=== PATIENT | female | born 1990 | race Caucasian/White ===

== ENCOUNTER 2016-12-28 12:09 | Emergency (ER) | payer SELFPAY ==
[~2016-12-28] VITALS: Ht 160 cm; Wt 86.2 kg
[2016-12-28 12:43] LABS: BILIRUBIN,URINE NEGATIVE (NEG); GLUCOSE,URINE NEGATIVE (NEG); NITRITE,URINE NEGATIVE (NEG); PH,URINE 6.5; PROTEIN,URINE NEGATIVE (NEG-TRACE); UROBILINOGEN,URINE 0.2 mg/dL (0.2 mg/dL)
[2016-12-28] MEDS ORDERED: IV NORMAL SALINE 1000ML BAG 1,000 ML IV ONE (12:45)
[2016-12-28 12:48] LABS: BARBITURATES NEG (NEG); BENZODIAZEPINES NEG (NEG); CANNABINOIDS POS (NEG); COCAINE NEG (NEG); METHADONE NEG (NEG); OPIATES NEG (NEG); PHENCYCLIDINE NEG (NEG)
[2016-12-28 12:50] LABS: BACTERIA,URINE MOD /HPF (0-FEW); ETHANOL, URINE NEG (NEG); SQUAMOUS EPITHELIAL CELL,UR MOD /LPF; WBC,URINE 20-40 /HPF (0-4)
--- NOTE | 2016-12-28 12:55 | ED.ADGEN ---
Past Medical History Past Medical History: Seizure, Other Additional Past Medical Histor: PCOS Past Surgical History: No Surgical History Alcohol Use: Rarely Drug Use: Marijuana Adult General Chief Complaint Chief Complaint: SYNCOPE HPI HPI Patient is a 26 year old and, with a remote history of seizure, for which she does not take medications, PCOS, for which she begun fertility treatments approximately 1 month ago at , who presents the emergency department with a complaint of "feeling weird", and an episode of syncope that occurred last night. Patient states that she first began feeling strange on Tuesday, states that she had been in a garage the propane heater, and she started feeling nauseous and lightheaded. She did feel better after she went inside and laid down away from the propane. Patient states that yesterday she was taking a shower, she bent over to shave her legs, began feeling lightheaded, and sat down abruptly on her bottom. Did not strike her head or belly. He has had some nausea and a few episodes of vomiting over the past several days. No blood or bile. States that she has had some abdominal cramping, and a small amount of discharge, but believes this may be due to the medication she is taking for fertility. States that she was not out for very long. She was seated in her tub when her boyfriend came in, denies any other episodes of syncope. Denies any similar symptoms previously. No family history of sudden cardiac or cardiac abnormalities. Last period was 11/27. He sprinting some urinary frequency , no dysuria, no hematuria. Patient states that she's had some discharge but it is consistent with the medication she's been taking for fertility. No shortness of breath, chest pain, no weakness, numbness, tingling, headache, vision changes. No upper or lower respiratory complaints. No fevers or chills. Patient denies any alcohol or cigarettes, states she did smoke marijuana on Tuesday. Heart rate 72 beats minute, oxygen saturation 100%, respiratory rate is 18 and unlabored, blood pressure 129/82. Review of Systems Review of Systems Constitutional: Denies fever or chills. [] Eyes: Denies change in visual acuity. [] HENT: Denies nasal congestion or sore throat. [] Respiratory: Denies cough or shortness of breath. [] Cardiovascular: Denies chest pain or edema. [] GI: Denies abdominal pain, nausea, vomiting, bloody stools or diarrhea. [] : Denies dysuria. [] Musculoskeletal: Denies back pain or joint pain. [] Integument: Denies rash. [] Neurologic: Denies headache, focal weakness or sensory changes. [] Endocrine: Denies polyuria or polydipsia. [] Lymphatic: Denies swollen glands. [] Psychiatric: Denies depression or anxiety. [] Current Medications Current Medications Current Medications Medications (Trade) Dose Ordered Sig/Bereket Start Time Stop Time Status Last Admin Dose Admin Metronidazole (Flagyl) 500 mg 1X ONCE 12/28/16 14:15 12/28/16 14:16 DC 12/28/16 14:43 500 MG Nitrofurantoin Macrocrystals (Macrobid) 100 mg 1X ONCE 12/28/16 14:15 12/28/16 14:16 DC 12/28/16 14:43 100 MG Sodium Chloride (Iv Sodium Chloride 0.9% 1000ml Bag) 1,000 ml @ 1,000 mls/hr 1X ONCE 12/28/16 12:45 12/28/16 13:44 DC 12/28/16 12:49 1,000 MLS/HR Allergies Allergies Allergies Coded Allergies Type Severity Reaction Last Updated Verified amoxicillin Allergy Mild rash 12/28/16 Yes Physical Exam Physical Exam Constitutional: Well developed, well nourished, no acute distress, non-toxic appearance. [] HENT: Normocephalic, atraumatic, bilateral external ears normal, oropharynx moist, no oral exudates, nose normal. [] Eyes: PERRLA, EOMI, conjunctiva normal, no discharge. [] Neck: Normal range of motion, no tenderness, supple, no stridor. [] Cardiovascular:Heart rate regular rhythm, no murmur, S1, S2, no rubs or gallops. [] Lungs & Thorax: Bilateral breath sounds clear to auscultation, no wheezing, rhonchi, rales. No chest tenderness or crepitus. [] Abdomen: Bowel sounds normal, soft, no tenderness, no rebound, rigidity, no guarding, no masses, no pulsatile masses. [] Skin: Warm, dry, no erythema, no rash. [] Back: No tenderness, no CVA tenderness. [] Extremities: No tenderness, no cyanosis, no clubbing, ROM intact, no edema. [ Negative Homans sign.] Neurologic: Alert and oriented X 3, normal motor function, normal sensory function, no focal deficits noted. [] Psychologic: Affect normal, judgement normal, mood normal. [] Pelvic examination performed. Patient complaining of abdominal cramping, however no tenderness or CMT noted on external examination, os is closed, small amount of whitish discharge noted in vault, visualize cervix is normal. No adnexal tenderness or masses identified. Specimens taken without issue. Current Patient Data Vital Signs Vital Signs Date Time Temp Pulse Resp B/P Pulse Ox O2 Delivery O2 Flow Rate FiO2 12/28/16 14:44 71 18 146/80 98 Room Air 12/28/16 12:16 98 98.0 Lab Values Laboratory Tests Test 12/28/16 11:35 12/28/16 12:31 12/28/16 12:41 12/28/16 12:45 POC Urine HCG, Qualitative Hcg positive (Negative) Urine Collection Type Unknown Urine Color Yellow Urine Clarity Clear Urine pH 6.5 Urine Specific [place] 1.015 Urine Protein Negativemg/dL (NEG-TRACE) Urine Glucose (UA) Negativemg/dL (NEG) Urine Ketones (Stick) Negativemg/dL (NEG) Urine Blood Moderate (NEG) Urine Nitrite Negative (NEG) Urine Bilirubin Negative (NEG) Urine Urobilinogen Dipstick 0.2mg/dL (0.2 mg/dL) Urine Leukocyte Esterase Large (NEG) Urine RBC 6-10/HPF (0-2) Urine WBC 20-40/HPF (0-4) Urine Squamous Epithelial Cells Mod/LPF Urine Bacteria Mod/HPF (0-FEW) Urine Opiates Screen Neg (NEG) Urine Methadone Screen Neg (NEG) Urine Barbiturates Neg (NEG) Urine Phencyclidine Screen Neg (NEG) Urine Amphetamine/Methamphetamine Neg (NEG) Urine Benzodiazepines Screen Neg (NEG) Urine Cocaine Screen Neg (NEG) Urine Cannabinoids Screen Pos (NEG) Urine Ethyl Alcohol Neg (NEG) Influenza Type A Antigen Negative (NEGATIVE) Influenza Type B Antigen Negative (NEGATIVE) White Blood Count 9.4x10^3/uL (4.0-11.0) Red Blood Count 4.72x10^6/uL (3.50-5.40) Hemoglobin 13.7g/dL (12.0-15.5) Hematocrit 41.5% (36.0-47.0) Mean Corpuscular Volume 88fL (79-100) Mean Corpuscular Hemoglobin 29pg (25-35) Mean Corpuscular Hemoglobin Concent 33g/dL (31-37) Red Cell Distribution Width 13.0% (11.5-14.5) Platelet Count 203x10^3/uL (140-400) Neutrophils (%) (Auto) 66% (31-73) Lymphocytes (%) (Auto) 21% (24-48) L Monocytes (%) (Auto) 5% (0-9) Eosinophils (%) (Auto) 7% (0-3) H Basophils (%) (Auto) 1% (0-3) Neutrophils # (Auto) 6.2x10^3uL (1.8-7.7) Lymphocytes # (Auto) 2.0x10^3/uL (1.0-4.8) Monocytes # (Auto) 0.5x10^3/uL (0.0-1.1) Eosinophils # (Auto) 0.6x10^3/uL (0.0-0.7) Basophils # (Auto) 0.0x10^3/uL (0.0-0.2) Maternal Serum HCG Beta Subunit 193mIU/mL (0-6) H Sodium Level 141mmol/L (136-145) Potassium Level 3.7mmol/L (3.5-5.1) Chloride Level 104mmol/L (98-107) Carbon Dioxide Level 24mmol/L (21-32) Anion Gap 13 (6-14) Blood Urea Nitrogen 10mg/dL (7-20) Creatinine 0.8mg/dL (0.6-1.0) Estimated GFR (Cockcroft-Gault) 86.7 Glucose Level 86mg/dL (70-99) Calcium Level 9.5mg/dL (8.5-10.1) Laboratory Tests 12/28/16 12:45 Laboratory Tests 12/28/16 12:45 Microbiology 12/28/16 Wet Prep - Final, Complete EKG EKG EC: Sinus rhythm, heart rate 73 beats minute, upright axis, QTC of 411, FL of 138, QRS of 86, no ST elevations or depressions, does not meet STEMI criteria. As interpreted by me. [] Radiology/Procedures Radiology/Procedures [] [facility] [address] [place] [address] IMAGING REPORT Signed PATIENT: GUERLINE LOPEZ ACCOUNT: [id number] : 1990 LOCATION: ER AGE: 26 SEX: F EXAM STATUS: REG ER ORD. PHYSICIAN: MARCEL ALVARADO DO REASON: Abd pain/syncope/ +preg test on fertility meds PROCEDURE: OB < 14 WKS Obstetrical ultrasound, 12/28/2016: History: Abdominal pain, positive test Transabdominal and transvaginal scans were obtained. The uterus is within normal limits in size. Tiny nabothian cysts are present in the cervical region. There is mild thickening of the central uterine echo complex which measures 14 mm in greatest AP diameter. No intrauterine gestational sac is seen. There is a 1.4 cm cyst in the left ovary. The ovaries are otherwise unremarkable. Blood flow is present in both ovaries. No adnexal mass is seen. There is no evidence of free fluid in the pelvis. IMPRESSION: 1. Thickening of the central uterine echo complex without evidence of an intrauterine or extrauterine gestational sac. This could represent a very early intrauterine . An occult ectopic cannot be excluded. Correlation with serial hCG titers and possibly sonographic follow-up is suggested. 2. Small left ovarian cyst. DICTATED and SIGNED BY: GABBY WELCH MD DATE: 12/28/16 7928 CC: MARCEL ALVARADO DO; NO PCP ~ Course & Med Decision Making Course & Med Decision Making Pertinent Labs and Imaging studies reviewed. (See chart for details) Patient's test is positive in the emergency department. When informed , patient becomes tearful, she is very excited with this finding. Due to abdominal cramping, and report of discharge, pelvic examination performed, I did discuss with patient that we'll obtain a beta quantitative assay, it is unlikely that there'll be anything visualized in the uterus due to the early stage of , but we'll proceed with ultrasound based on her cramping, discomfort, and potential high risk state, as patient is very anxious that ultrasound be performed. She did speak to her OB office from the emergency department. Pelvic exam performed, unremarkable examination with closed os. This is patient's first . Patient with scant amount of discharge noted , wet prep was positive for clue cells consistent with bacterial vaginosis. Urinalysis did reveal 20-40 WBCs and some bacteria, both which are treated in the ED the patient was also given a perception for Macrobid and metronidazole, having tolerated first dose of medication as stated. IV fluids given, laboratory studies ECG, otherwise unremarkable. I believe the patient's symptoms are consistent with early at this time, no evidence of other concerning findings during her evaluation. However with a beta quantitative assay of 193, and ultrasound reveals only a thickened endometrium, patient will require follow-up with her OB, unable to rule out possible ectopic or other, patient this time, but there is no evidence of free fluid or acute abnormality at this time. I did discuss importance of follow-up for test of cure , and additional evaluation, patient to contact her OBs office with this information today to schedule follow-up appointment, to take medications as directed, to stay well-hydrated, continue vitamins, and to return for concerning symptoms as discussed. Patient voiced understanding and agreement with this plan, given copy of her ultrasound results with her discharge paperwork. Dragon Disclaimer Dragon Disclaimer This electronic medical record was generated, in whole or in part, using a voice recognition dictation system. Departure Impression: Primary Impression: Syncope Additional Impressions: Abdominal pain during Bacterial vaginosis Urinary tract infection Disposition: 01 HOME, SELF-CARE Condition: IMPROVED Scripts Metronidazole 500 Mg Tablet1 Tab PO BID #13 TAB 1 tablet by mouth twice daily for 7 days to treat infection. First dose given in the emergency department. Prov:MARCEL ALVARADO DO 12/28/16 Nitrofurantoin Monohyd/M-Cryst (Macrobid 100 Mg Capsule)100 Mg Capsule1 Cap PO BID #13 CAP One tablet by mouth twice daily for 7 days to treat infection. First dose given in the emergency department. Prov:MARCEL ALVARADO DO 12/28/16 Problem Qualifiers MARCEL ALVARADO DO Dec 28, 2016 12:55
[2016-12-28 13:10] LABS: BASO % 1 % (0-3); EOS % 7 % (0-3); HEMATOCRIT 41.5 % (36.0-47.0); HEMOGLOBIN 13.7 g/dL (12.0-15.5); LYMPH % 21 % (24-48); MEAN CORPUSCULAR HEMOGLOBIN 29 pg (25-35); MEAN CORPUSCULAR HGB CONC 33 g/dL (31-37); MEAN CORPUSCULAR VOLUME 88 fL (79-100); MONO % 5 % (0-9); NEUT % 66 % (31-73); PLATELET COUNT 203 x10^3/uL (140-400); RED BLOOD COUNT 4.72 x10^6/uL (3.50-5.40); WHITE BLOOD COUNT 9.4 x10^3/uL (4.0-11.0)
[2016-12-28 13:18] LABS: CALCIUM 9.5 mg/dL (8.5-10.1); CREATININE 0.8 mg/dL (0.6-1.0); GFR 86.7; POTASSIUM 3.7 mmol/L (3.5-5.1)
[2016-12-28 13:31] LABS: OBC FLU VALID
[2016-12-28] MEDS ORDERED: NITROFURANTOIN MONOHYD/M-CRYST 100 MG CAPSULE. PO ONE (14:15)
[2016-12-28] MEDS ORDERED: METRONIDAZOLE 500 MG TABLET. PO ONE (14:15)
--- NOTE | 2016-12-28 14:16 | EKG ---
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
--- NOTE | 2016-12-28 14:51 | RAD ---
Obstetrical ultrasound, 12/28/2016: History: Abdominal pain, positive test Transabdominal and transvaginal scans were obtained. The uterus is within normal limits in size. Tiny nabothian cysts are present in the cervical region. There is mild thickening of the central uterine echo complex which measures 14 mm in greatest AP diameter. No intrauterine gestational sac is seen. There is a 1.4 cm cyst in the left ovary. The ovaries are otherwise unremarkable. Blood flow is present in both ovaries. No adnexal mass is seen. There is no evidence of free fluid in the pelvis. IMPRESSION: 1. Thickening of the central uterine echo complex without evidence of an intrauterine or extrauterine gestational sac. This could represent a very early intrauterine . An occult ectopic cannot be excluded. Correlation with serial hCG titers and possibly sonographic follow-up is suggested. 2. Small left ovarian cyst.
[2016-12-28] MEDS ORDERED: METR500T4 PO (15:06)
[2016-12-28] MEDS ORDERED: NITR100C62 PO (15:06)
[2016-12-28 15:18] VITALS: BP 123/78
== END 2016-12-28 15:17 | disposition home or self-care (01) ==
LOC: ER 12:09
DX: O26.891 Other specified pregnancy related conditions, first trimester (principal); R55 Syncope and collapse; R10.9 Unspecified abdominal pain; O23.591 Infection of other part of genital tract in pregnancy, first trimester; F12.10 Cannabis abuse, uncomplicated; Z3A.00 Weeks of gestation of pregnancy not specified; Z88.0 Allergy status to penicillin
CPT/HCPCS: 36415; 76801; 80048; 80305; 81001; 81025; 84702; 85027; 87491; 87591; 87804; 93005; 96360; 99285; J7030; Q0111; G0481

== ENCOUNTER 2017-01-15 10:33 | Emergency (ER) | payer SELFPAY ==
[~2017-01-15] VITALS: Ht 160 cm; Wt 86.2 kg
[~2017-01-15 10:33] MED LIST: METR500T4 PO; NITR100C62 PO
[2017-01-15 11:52] LABS: BILIRUBIN,URINE NEGATIVE (NEG); GLUCOSE,URINE NEGATIVE (NEG); NITRITE,URINE NEGATIVE (NEG); PH,URINE 6.5; PROTEIN,URINE NEGATIVE (NEG-TRACE); UROBILINOGEN,URINE 0.2 mg/dL (0.2 mg/dL)
[2017-01-15 12:01] LABS: BACTERIA,URINE MANY /HPF (0-FEW); SQUAMOUS EPITHELIAL CELL,UR MANY /LPF
--- NOTE | 2017-01-15 12:16 | PHYS DOC ---
Past Medical History Past Medical History: Seizure, UTI, Other Additional Past Medical Histor: PCOS Past Surgical History: No Surgical History Additional Information: nonsmoker Alcohol Use: None Drug Use: Marijuana Social History Narrative: none recently Adult General Chief Complaint Chief Complaint: VAGINAL BLEEDING [facility] HPI Patient is a 26 year old female who presents with vaginal bleeding starting yesterday. The patient is currently with LMP 11/25/16. She describes the bleeding as light of any usual. But heavier than spotting. She has mild mid abdominal pain. She's had nausea and vomiting, however has had morning sickness with her . She also reports urinary frequency. She denies fever, change in bowel movements, or dysuria. She is . She states that she is a high-risk because she has been taking fertility drugs to conceive. Her OB is Dr. Angelina Cowart. Review of Systems Review of Systems Constitutional: Denies fever or chills. [] Eyes: Denies change in visual acuity, redness, or eye pain. [] HENT: Denies ear pain, nasal congestion or sore throat. [] Respiratory: Denies cough or shortness of breath. [] Cardiovascular: Denies chest pain, palpitations or edema. [] GI: Denies bloody stools or diarrhea. Reports mid abdominal pain and nausea with vomiting. : Denies dysuria, hematuria. Reports urinary frequency. Reports vaginal bleeding in . Musculoskeletal: Denies back pain or joint pain. [] Integument: Denies rash or skin lesions. [] Neurologic: Denies headache, focal weakness or sensory changes. [] Endocrine: Denies polyuria or polydipsia. [] Psych: Denies anxiety or depression. [] All systems reviewed and negative unless otherwise stated in the HPI. Current Medications Current Medications Current Medications Medications (Trade) Dose Ordered Sig/Bereket Start Time Stop Time Status Last Admin Dose Admin Promethazine HCl (Phenergan) 12.5 mg STK-MED ONCE 01/15/17 13:17 01/15/17 13:18 DC Allergies Allergies Allergies Coded Allergies Type Severity Reaction Last Updated Verified amoxicillin Allergy Mild rash 12/28/16 Yes Physical Exam Physical Exam Constitutional: Well developed, well nourished, no acute distress, non-toxic appearance. [] HENT: Normocephalic, atraumatic, oropharynx moist. [] Eyes: PERRLA, EOMI, conjunctiva normal, no discharge. [] Neck: Normal range of motion, no tenderness, supple, no stridor. [] Cardiovascular: Heart rate regular rhythm, no murmur. [] Lungs & Thorax: Bilateral breath sounds clear to auscultation without wheezes, rales, or rhonchi. [] Abdomen: Bowel sounds normal, soft, mild suprapubic tenderness, no masses, no pulsatile masses. [] Female : Normal external genitalia. There is no active leading. Cervical os is closed. There is a small amount of clear discharge in the vagina. There is no cervicitis, CMT, adnexal tenderness or mass. Skin: Warm, dry, no erythema, no rash. [] Back: No midline tenderness, no CVA tenderness. [] Extremities: No tenderness, ROM intact, no edema. Distal pulses equal bilaterally. [] Neurologic: Alert and oriented X 3, normal motor function, normal sensory function, no focal deficits noted. [] Psychologic: Affect normal, judgement normal, mood normal. [] Current Patient Data Vital Signs Vital Signs Date Time Temp Pulse Resp B/P Pulse Ox O2 Delivery O2 Flow Rate FiO2 01/15/17 10:44 98.2 115 16 137/78 96 Room Air 98.2 Lab Values Laboratory Tests Test 01/15/17 09:59 01/15/17 10:45 01/15/17 11:58 POC Urine HCG, Qualitative Hcg positive (Negative) Urine Collection Type Unknown Urine Color Yellow Urine Clarity Cloudy Urine pH 6.5 Urine Specific [place] >=1.030 Urine Protein Negativemg/dL (NEG-TRACE) Urine Glucose (UA) Negativemg/dL (NEG) Urine Ketones (Stick) Negativemg/dL (NEG) Urine Blood Large (NEG) Urine Nitrite Negative (NEG) Urine Bilirubin Negative (NEG) Urine Urobilinogen Dipstick 0.2mg/dL (0.2 mg/dL) Urine Leukocyte Esterase Large (NEG) Urine RBC 6-10/HPF (0-2) Urine WBC 11-20/HPF (0-4) Urine Squamous Epithelial Cells Many/LPF Urine Bacteria Many/HPF (0-FEW) Urine Mucus Marked/LPF Maternal Serum HCG Beta Subunit 32979dYF/mL (0-6) H Microbiology 01/15/17 Wet Prep - Final, Complete WET PREP Final YEAST NONE SEEN TRICHOMONAS NONE SEEN CLUE CELLS NONE SEEN SQUAMOUS EPS FEW EKG EKG [] Radiology/Procedures Radiology/Procedures REASON: vaginal bleeding, LMP 11/25/16 PROCEDURE: OB < 14 WKS OB ultrasound study less than 14 weeks. Clinical indications: . Vaginal bleeding since early this a.m. Transabdominal sonography: The uterus is anteverted in position. The longitudinal and AP and transverse dimensions of the uterus are 9.1 cm and 5.0 cm and 6.3 cm respectively. An intrauterine gestational sac is seen within the mid to lower aspect of the endometrial canal. Transvaginal sonography will be performed. No adnexal mass or free fluid is seen. Transvaginal sonography: A single IUP is seen.. Average crown-rump length is 0.59 cm which corresponds to gestational age of 6 weeks and 4 days with an EDC of September 07, 2017. heart rate is 120 bpm. Mild internal echoes are seen within the amniotic sac. This could represent implantation bleeding. There is heterogeneous echogenic area adjacent to the gestational sac measuring 18 mm in greatest dimension which may represent a small extra chorionic hemorrhage or implantation bleed. No free fluid is seen within the cul-de-sac. The left ovary measures 3.0 cm and 2.5 cm and 2.3 cm in size and contains a small corpus luteum cyst measuring 9 mm. Color flow is seen within the left ovary. Right ovary is not visualized. No adnexal masses are evident. IMPRESSION: Single IUP with approximate gestational age of 6 weeks 4 days. heart rate is 120 bpm. Small 18 mm extra chorionic hemorrhage or implantation bleed. Course & Med Decision Making Course & Med Decision Making Pertinent Labs and Imaging studies reviewed. (See chart for details) The patient presents with vaginal bleeding starting yesterday. She is with LMP 11/25/16. On exam, she has mild suprapubic tenderness. There is no bleeding noted on pelvic examination. On bimanual examination, the cervical os is closed and there is no CMT or adnexal mass or tenderness. Ultrasound shows IUP of 6 weeks 4 days gestation with mild implantation bleed. Her blood type is O+. She does appear to have a UTI. She states that she was just treated for a UTI approximately 2 weeks ago with Macrobid. Patient is instructed to follow closely with her OB doctor. She is discharged home with prescription for Phenergan and Keflex. Return precautions were discussed. She verbalizes understanding and agrees with plan. Dragon Disclaimer Dragon Disclaimer This electronic medical record was generated, in whole or in part, using a voice recognition dictation system. Departure Departure Impression: Primary Impression: Threatened in first trimester Additional Impression: UTI (urinary tract infection) Disposition: HOME, SELF-CARE Condition: STABLE Referrals: NO PCP (PCP) Patient Instructions: - Urinary Tract Infection, Threatened Miscarriage, [id number] Additional Instructions: Your ultrasound showed a viable with good heart activity. There appears to be an implantation bleed. Your urine is positive for a urinary tract infection. This complete all the prescribed antibiotics. Please follow-up with your OB within the next 3-4 days. Return to the emergency department if you have heavy vaginal bleeding requiring you to change a pad every hour, severe abdominal pain, or other new or concerning symptoms. Scripts Promethazine Hcl 25 Mg Tablet1 Tab PO PRN Q6HRS PRN NAUSEA/VOMITING #20 TAB Prov:MARCEL ASIF 01/15/17 Cephalexin (Keflex)500 Mg Capsule1 Cap PO BID #14 CAP Prov:MARCEL ASIF 01/15/17 Problem Qualifiers Additional Impression: UTI (urinary tract infection) Urinary tract infection type: acute cystitis Hematuria presence: without hematuria Qualified Code: N30.00 - Acute cystitis without hematuria MARCEL ASIF Jan 15, 2017 12:16
--- NOTE | 2017-01-15 12:42 | RAD ---
OB ultrasound study less than 14 weeks. Clinical indications: . Vaginal bleeding since early this a.m. Transabdominal sonography: The uterus is anteverted in position. The longitudinal and AP and transverse dimensions of the uterus are 9.1 cm and 5.0 cm and 6.3 cm respectively. An intrauterine gestational sac is seen within the mid to lower aspect of the endometrial canal. Transvaginal sonography will be performed. No adnexal mass or free fluid is seen. Transvaginal sonography: A single IUP is seen.. Average crown-rump length is 0.59 cm which corresponds to gestational age of 6 weeks and 4 days with an EDC of September 07, 2017. heart rate is 120 bpm. Mild internal echoes are seen within the amniotic sac. This could represent implantation bleeding. There is heterogeneous echogenic area adjacent to the gestational sac measuring 18 mm in greatest dimension which may represent a small extra chorionic hemorrhage or implantation bleed. No free fluid is seen within the cul-de-sac. The left ovary measures 3.0 cm and 2.5 cm and 2.3 cm in size and contains a small corpus luteum cyst measuring 9 mm. Color flow is seen within the left ovary. Right ovary is not visualized. No adnexal masses are evident. IMPRESSION: Single IUP with approximate gestational age of 6 weeks 4 days. heart rate is 120 bpm. Small 18 mm extra chorionic hemorrhage or implantation bleed.
[2017-01-15] MEDS ORDERED: PROMETHAZINE 12.5 MG TABLET. PO ONE (13:15)
[2017-01-15] MEDS ORDERED: PROMETHAZINE 12.5 MG TABLET. ONE (13:17)
[2017-01-15] MEDS ORDERED: PROM25TA10 PO (13:28)
[2017-01-15] MEDS ORDERED: CEPH-264 PO (13:28)
[2017-01-15 13:37] VITALS: BP 116/72
== END 2017-01-15 13:38 | disposition home or self-care (01) ==
LOC: ER 10:33
DX: O20.0 Threatened abortion (principal); O23.31 Infections of other parts of urinary tract in pregnancy, first trimester; N30.00 Acute cystitis without hematuria; F12.10 Cannabis abuse, uncomplicated; Z88.0 Allergy status to penicillin; Z3A.01 Less than 8 weeks gestation of pregnancy
CPT/HCPCS: 36415; 76801; 81001; 84702; 84703; 86900; 86901; 87086; 87491; 87591; 99285; Q0111; Q0169; 81025

== ENCOUNTER 2017-01-25 17:03 | Emergency (ER) | payer SELFPAY ==
[~2017-01-25] VITALS: Ht 162.6 cm; Wt 90.7 kg
[~2017-01-25 17:03] MED LIST changes: +CEPH-264 PO; +PROM25TA10 PO
[2017-01-25] MEDS ORDERED: IV NORMAL SALINE 1000ML BAG 1,000 ML IV SCH (18:04)
[2017-01-25] MEDS ORDERED: ONDANSETRON PF 4 MG/2 ML VIAL. IV ONE (18:15)
[2017-01-25 19:00] LABS: CALCIUM 9.1 mg/dL (8.5-10.1); CREATININE 0.6 mg/dL (0.6-1.0); GFR 120.8; POTASSIUM 3.5 mmol/L (3.5-5.1)
[2017-01-25 19:04] VITALS: BP 110/78
--- NOTE | 2017-01-25 19:04 | PHYS DOC ---
Past Medical History Past Medical History: Seizure, UTI, Other Additional Past Medical Histor: PCOS Past Surgical History: No Surgical History Alcohol Use: None Drug Use: Marijuana Adult General Chief Complaint Chief Complaint: VOMITING IN HPI HPI Patient is a 26 year old female G1 approx 8 wk single IUP who presents with intermittent nausea and vomiting throughout this . 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 She denies fever or chills, abdominal pain, diarrhea, dysuria, hematuria, vaginal bleeding or discharge. Review of Systems Review of Systems Constitutional: Denies fever or chills [] Eyes: Denies change in visual acuity, redness, or eye pain [] HENT: Denies nasal congestion or sore throat [] Respiratory: Denies cough or shortness of breath [] Cardiovascular: No additional information not addressed in HPI [] GI: Denies abdominal pain, bloody stools or diarrhea [] : Denies dysuria or hematuria [] Musculoskeletal: Denies back pain or joint pain [] Integument: Denies rash or skin lesions [] Neurologic: Denies headache, focal weakness or sensory changes [] Endocrine: Denies polyuria or polydipsia [] Current Medications Current Medications Current Medications Medications (Trade) Dose Ordered Sig/Bereket Start Time Stop Time Status Last Admin Dose Admin Ondansetron HCl (Zofran) 4 mg 1X ONCE 01/25/17 18:15 01/25/17 18:16 DC 01/25/17 18:24 4 MG Sodium Chloride (Iv Sodium Chloride 0.9% 1000ml Bag) 1,000 ml @ 1,000 mls/hr Q1H 01/25/17 18:04 01/25/17 19:03 DC 01/25/17 18:23 1,000 MLS/HR Allergies Allergies Allergies Coded Allergies Type Severity Reaction Last Updated Verified amoxicillin Allergy Mild rash 01/25/17 Yes Physical Exam Physical Exam Constitutional: Well developed, well nourished, no acute distress, non-toxic appearance. [] HENT: Normocephalic, atraumatic, bilateral external ears normal, oropharynx moist, nose normal. [] Eyes: PERRLA, EOMI. [] Neck: Normal range of motion, supple. [] Cardiovascular:Heart rate regular rhythm [] Lungs & Thorax: Bilateral breath sounds clear to auscultation [] Abdomen: Bowel sounds normal, soft, no tenderness. [] Skin: Warm, dry, no erythema, no rash. [] Back: No tenderness, no CVA tenderness. [] Extremities: No tenderness, ROM intact. [] Neurologic: Alert and oriented X 3, normal motor function, normal sensory function, no focal deficits noted. [] Psychologic: Affect normal, judgement normal, mood normal. [] Current Patient Data Vital Signs Vital Signs Date Time Temp Pulse Resp B/P Pulse Ox O2 Delivery O2 Flow Rate FiO2 01/25/17 19:04 78 110/78 98 Room Air 01/25/17 17:30 98.2 20 98.2 Lab Values Laboratory Tests Test 01/25/17 18:20 Sodium Level 137mmol/L (136-145) Potassium Level 3.5mmol/L (3.5-5.1) Chloride Level 101mmol/L (98-107) Carbon Dioxide Level 24mmol/L (21-32) Anion Gap 12 (6-14) Blood Urea Nitrogen 13mg/dL (7-20) Creatinine 0.6mg/dL (0.6-1.0) Estimated GFR (Cockcroft-Gault) 120.8 Glucose Level 86mg/dL (70-99) Calcium Level 9.1mg/dL (8.5-10.1) Laboratory Tests 01/25/17 18:20 Course & Med Decision Making Course & Med Decision Making Pertinent Labs and Imaging studies reviewed. (See chart for details) Transabdominal ultrasound as performed and interpreted by me showing single intrauterine with heart rate approximately 158. Laboratory evaluation is unremarkable. She is feeling better after medications and would like to go home. Discussed taking Unisom and B6 daily to help with her nausea and vomiting related to . Return precautions given. She understands and agrees plan. Dragon Disclaimer Dragon Disclaimer This electronic medical record was generated, in whole or in part, using a voice recognition dictation system. Departure Departure Impression: Primary Impression: Nausea and vomiting during Disposition: 01 HOME, SELF-CARE Condition: STABLE Referrals: UNKNOWN PCP NAME (PCP) Patient Instructions: - First Trimester, [id number] Additional Instructions: Take B6 and unisom at night to help prevent nausea. Drink liquids to stay hydrated. Follow up with your OB doctor. Return for any concerns. Chelsy CANTU MD Jan 25, 2017 19:04
== END 2017-01-25 19:18 | disposition home or self-care (01) ==
LOC: ER 17:03
DX: O21.9 Vomiting of pregnancy, unspecified (principal); F12.10 Cannabis abuse, uncomplicated; Z3A.08 8 weeks gestation of pregnancy; Z88.0 Allergy status to penicillin
CPT/HCPCS: 36415; 80048; 96361; 96374; 99284; J2405; J7030

== ENCOUNTER 2017-03-06 17:19 | Emergency (ER) | payer OTHER ==
[~2017-03-06] VITALS: Ht 162.6 cm; Wt 90.7 kg
[2017-03-06 17:25] VITALS: BP 126/73
--- NOTE | 2017-03-06 19:01 | PHYS DOC ---
Past Medical History Past Medical History: Seizure, UTI, Other Additional Past Medical Histor: PCOS Past Surgical History: No Surgical History Alcohol Use: None Drug Use: Marijuana Adult General Chief Complaint Chief Complaint: FOOT INJURY PAIN HPI HPI 26-year-old female presenting to the emergency department today with ankle pain after tripping approximately 1 hour ago. The pain is sharp moderate intermittent and worse with walking. There is associated swelling. Review of systems is negative for knee pain or hip pain proximally. She denies chest pain or shortness of breath. All other review of systems is negative unless otherwise noted in history of present illness. Review of Systems Review of Systems SEE ABOVE. Allergies Allergies Allergies Coded Allergies Type Severity Reaction Last Updated Verified amoxicillin Allergy Mild rash 01/25/17 Yes Physical Exam Physical Exam Constitutional: Well developed, well nourished, no acute distress, non-toxic appearance. HENT: Normocephalic, atraumatic, bilateral external ears normal, oropharynx moist, no oral exudates, nose normal. [] Eyes: PERRLA, EOMI, conjunctiva normal, no discharge. Neck: Normal range of motion, no tenderness, supple, no stridor. [] Cardiovascular:Heart rate regular rhythm, no murmur Lungs & Thorax: Bilateral breath sounds clear to auscultation [] Abdomen: Bowel sounds normal, soft, no tenderness, no masses, no pulsatile masses. Skin: Warm, dry, no erythema, no rash. [] Back: No tenderness, no CVA tenderness. Extremities: The patient's right ankle is normal temperature well perfused with a palpable pulse. 2 second cap refill present. She is able to wiggle her toes however does have less range of motion of the toes because of severe swelling in her leg, combo of her being and the acute injury. Mild tenderness along the ATFL region of the right ankle. Moderate swelling present. No ecchymosis. No laceration abrasion or erythema. Otherwise the remainder the extremities are nontender with normal range of motion. Neurologic: Alert and oriented X 3, normal motor function, normal sensory function, no focal deficits noted. [] Psychologic: Affect normal, judgement normal, mood normal. Current Patient Data Vital Signs Vital Signs Date Time Temp Pulse Resp B/P (MAP) Pulse Ox O2 Delivery O2 Flow Rate FiO2 03/06/17 17:25 98.3 87 16 126/73 (90) 97 Room Air 98.3 EKG EKG [] Radiology/Procedures Radiology/Procedures [] X-rays of the ankle and foot unremarkable for acute bony fracture or dislocation. Course & Med Decision Making Course & Med Decision Making Pertinent Labs and Imaging studies reviewed. (See chart for details) [] 26-year-old female presenting with right ankle pain. X-rays unremarkable. The patient was placed in a walking boot and given crutches. Because the patient is she can take acetaminophen for pain. I recommended rest ice compression and elevation. Follow up with PCP over 2-3 days for repeat ankle exam. The patient was then discharged home in stable condition to follow up with their primary care physician over the next 2-3 days. They were to return if their symptoms worsened or if they were concerned for any reason. Face-to- face discharge instructions and return precautions were given. Patient's questions were answered to their satisfaction. Patient is comfortable plan. Dragon Disclaimer Dragon Disclaimer This electronic medical record was generated, in whole or in part, using a voice recognition dictation system. Departure Departure Impression: Primary Impression: Right ankle injury Disposition: 01 HOME, SELF-CARE Condition: STABLE Referrals: NO PCP (PCP) ALLAN STACY MD Patient Instructions: Ankle Sprain Additional Instructions: Thank you for allowing us to participate in your care today. Followup with your primary care physician in 3 days if your symptoms do not improve. If you do not have a primary care provider you can ask for a list of our primary care providers. Return to the emergency department you have any new or concerning findings. This should be evaluated by the primary care physician and any necessary consulting services for continued management within a few days after discharge. Return to emergency room if you have any new or concerning symptoms including but not limited to fever, chills, nausea, vomiting, intractable pain, any new rashes, chest pain, shortness of air, uncontrolled bleeding, difficulty breathing, and/or vision loss. CATIA WISE MD March 06, 2017 19:00
--- NOTE | 2017-03-07 08:45 | RAD ---
Right ankle 3 views. History: Pain right ankle, injury 3 views were taken of the right ankle. There is not evidence of an acute fracture or osseous abnormality. Impression: 1. No fracture noted in the right ankle.
--- NOTE | 2017-03-07 08:47 | RAD ---
Right foot 3 views. History: Injury, pain right foot, swelling fourth and fifth distal metatarsal 3 views were taken of the right foot. There is not evidence of an acute fracture or osseous abnormality. There is soft tissue swelling. There is irregularity of the sesamoid of the peroneal tendon which could be an acute injury or chronic finding. Impression: 1. Irregularity of the sesamoid of the peroneal tendon. 2. No other acute osseous abnormality noted.
== END 2017-03-06 19:30 | disposition home or self-care (01) ==
LOC: ER 17:19
DX: O9A.219 Injury, poisoning and certain other consequences of external causes complicating pregnancy, unspecified trimester (principal); S99.911A Unspecified injury of right ankle, initial encounter; E28.2 Polycystic ovarian syndrome; O99.320 Drug use complicating pregnancy, unspecified trimester; F12.10 Cannabis abuse, uncomplicated; Z3A.00 Weeks of gestation of pregnancy not specified; Z87.440 Personal history of urinary (tract) infections; Z88.1 Allergy status to other antibiotic agents
CPT/HCPCS: 73610; 73630; 99284